=== PATIENT | male | born 1985 | race Caucasian/White ===

== ENCOUNTER 2022-07-26 16:43 | Emergency (ER) | payer OTHER ==
[2022-07-26] MEDS ORDERED: DEXAMETHASONE SOD PHOSPHATE 10 MG/1 ML VIAL IVPUSH ONE (16:48)
[2022-07-26] MEDS ORDERED: KETOROLAC TROMETHAMINE 30 MG/1 ML VIAL IVPUSH ONE (16:49)
[2022-07-26] MEDS ORDERED: SODIUM CHLORIDE 0.9% 500 ML INFUS.BAG IV ONE (16:49)
[2022-07-26] MEDS ORDERED: ALBUTEROL SO4 2.5/IPRATROPIUM 0.5 INH SOL 3 ML VIAL.NEB. NEB ONE ×3 (17:05→21:50)
[2022-07-26] MEDS ORDERED: DEXAMETHASONE SOD PHOSPHATE 10 MG/1 ML VIAL ONE (17:06)
[2022-07-26] MEDS ORDERED: KETOROLAC TROMETHAMINE 30 MG/1 ML VIAL ONE (17:06)
[2022-07-26] MEDS: ALBUTEROL SO4 2.5/IPRATROPIUM 0.5 INH SOL 3 ML VIAL.NEB. NEB SCH ×3 (17:27→17:47)
[2022-07-26 17:34] VITALS: BMI 33.5
[2022-07-26 17:43] LABS: HEMATOCRIT 47.2 % (35.4-49); HEMOGLOBIN 16.7 G/dL (11.7-16.9); MCHC 35.4 g/dl (32.0-35.9); MEAN CELL VOLUME 90.5 fl (80-96); MEAN PLT VOLUME 7.4 fl (7.5-11.1); PLATELET COUNT 241.4 10^3/uL (134-434); RBC 5.22 10^6/uL (4.00-5.60); RDW 13.5 % (11.9-15.9); WHITE BLOOD COUNT 15.4 10^3/uL (4.0-10.8)
[2022-07-26 18:01] LABS: ALK PHOS 71 U/L (45-117); ANION GAP 12 MMOL/L (8-16); BILIRUBIN,TOTAL 1.5 mg/dl (0.2-1); CALCIUM 9.9 mg/dl (8.5-10); CHLORIDE 99 mmol/L (98-107); CO2 25 mmol/L (21-32); GLUCOSE,RANDOM 101 mg/dl (74-106); SGOT/AST 25 U/L (15-37); SGPT/ALT 35 U/L (13-61); SODIUM 136 mmol/L (136-145); TOT PROT 8.3 g/dl (6.4-8.2)
[2022-07-26 18:34] LABS: PLATELET ESTIMATE ADEQUATE
[2022-07-26 19:20] LABS: VENOUS BASE EXCESS -2.6 mmol/L (-2-2); VENOUS O2 SATURATION 55.1 % (70-80); VENOUS PCO2 40.3 mmHg (38-52); VENOUS PH 7.365 (7.310-7.410)
[2022-07-26 20:52] VITALS: BP 104/92; PULSE 104; RESP 18; TEMP 99.4
== END 2022-07-26 22:08 | disposition home or self-care (01) ==
LOC: FER 16:43
PROC: 3E0F7GC Introduction of Other Therapeutic Substance into Respiratory Tract, Via Natural or Artificial Opening (ICD-10-PCS; principal; 2022-07-26)
PROC: 3E0F7GC Introduction of Other Therapeutic Substance into Respiratory Tract, Via Natural or Artificial Opening (ICD-10-PCS; 2022-07-26)
PROC: 3E0333Z Introduction of Anti-inflammatory into Peripheral Vein, Percutaneous Approach (ICD-10-PCS; 2022-07-26)
PROC: 3E0333Z Introduction of Anti-inflammatory into Peripheral Vein, Percutaneous Approach (ICD-10-PCS; 2022-07-26)
DX: J45.901 Unspecified asthma with (acute) exacerbation (principal); R06.02 Shortness of breath
CPT/HCPCS: 0241U-QW; 36415; 71045-TC-FY; 80053; 82803; 84484; 85027; 85379; 93005; 99285-25; J1100